=== PATIENT | female | born 1945 | race Caucasian/White ===

== ENCOUNTER → 2017-11-12 | Day surgery (SDC) | payer MEDICARE ==
[2017-11-11 10:30] LABS: BASOPHILS # (AUTO) 0.1 (0.0-0.1); BASOPHILS % 0.5 % (0.0-1.0); EOSINOPHILS # (AUTO) 0.3 (0.0-0.4); EOSINOPHILS % 2.7 % (0.0-6.0); HEMATOCRIT 38.9 % (34.2-44.1); HEMOGLOBIN 13.2 g/dL (12.0-16.0); LYMPHOCYTES # (AUTO) 1.5 (1.0-3.2); LYMPHOCYTES % 15.8 % (18.0-39.1); MEAN CORPUSCULAR HEMOGLOBIN 32.7 pg (28-32); MEAN CORPUSCULAR HGB CONC 33.9 g/dL (31-35); MEAN CORPUSCULAR VOLUME 96.3 fL (81-99); MONOCYTES % 10.6 % (4.4-11.3); NEUTROPHILS # (AUTO) 6.8 (2.1-6.9); NEUTROPHILS % 70.1 % (38.7-80.0); PLATELET COUNT 424 x10e3/uL (140-360); RED BLOOD COUNT 4.04 x10e6/uL (3.6-5.1); RED CELL DISTRIBUTION WIDTH 13.3 % (11.7-14.4)
[2017-11-11 10:51] LABS: ANION GAP 14.4 mmol/L (8-16); CALCIUM 10.7 mg/dL (8.4-10.2); CREATININE, SERUM 0.98 mg/dL (0.57-1.11); POTASSIUM 4.4 mmol/L (3.5-5.1)
--- NOTE | 2017-11-11 11:02 | Diagnostic Imaging Report ---
PROCEDURE: X-RAY CHEST, TWO VIEWS COMPARISON: None. INDICATIONS: PREOPERATIVE FOR ANKLE SURGERY FINDINGS: LUNGS: No consolidations or edema. Opacity in the lingula likely represents scarring. PLEURA: No effusions or pneumothorax. HEART \T\ MEDIASTINUM: The heart is within normal size-limits. BONES \T\ SOFT TISSUES: No acute findings. Degenerative changes of the spine. CONCLUSION: No acute thoracic abnormality. Usman Macdonald D.O. Dictated by: Usman Macdonald D.O. on 11/11/2017 at 11:03 Electronically approved by: Usman Macdonald D.O. on 11/11/2017 at 11:03
[~2017-11-12] MED LIST: ACETAMINOPHEN 1000 MG/100 ML IV ONE; CEFAZOLIN SOD 2 GM/D5W 50ML 50 ML IV ONE; CYMBALTA30 MG PO; DEXAMETHASONE SOD PHOS INJ 4 MG/ML VIAL ONE; FENTANYL CITRATE/PF 100MCG/2 ML INJ ONE; HYDROCHLOROTHIA25 MG PO; KETOROLAC TROMETHAMINE 30 MG/ML VIAL ONE; LIDOCAINE HCL 2% LOCAL INJ 5 ML SDV VIAL INJ ONE; METOPROLOL TART25 MG PO; MIDAZOLAM HCL 2 MG/2 ML VIAL ONE; ONDANSETRON HCL INJ 2 MG/ML VIAL ONE; PROPOFOL IV EMULSION 10 MG/ML 20 ML VIAL ONE; TRIAMTERENE PO; [UNRECOGNIZED DRUG - OTHER] PO
--- OUTSIDE RECORDS SUMMARY | 2017-11-12 11:56 | XMS REPORT ---
[facility] Address Unknown Phone Unavailable Care Team Providers Care Pearl Glue Operator Name Role Phone SOPHY WOLFE Unavailable Unavailable Problems This patient has no known problems. Allergies, Adverse Reactions, Alerts This patient has no known allergies or adverse reactions. Medications This patient has no known medications. Results Test Description Test Time Test Comments Text Results Atomic Results Result Comments CHEST 2 VIEWS [place] [address] Patient Name: MATI NAGY MR #: [id number] : 1945 Age/Sex: 72/F Req # : [id number] Adm Physician: Ordered by: CHRIS LEAVITT MD Report #: [id number] Location: OR Room/Bed: Procedure: [id number] DX/CHEST 2 VIEWS Exam Date: 11/11/17 Exam Time: 1030 REPORT STATUS: Signed PROCEDURE: X-RAY CHEST, TWO VIEWS COMPARISON: None. INDICATIONS: PREOPERATIVE FOR ANKLE SURGERY FINDINGS: LUNGS: No consolidations or edema. Opacity in the lingula likely represents scarring. PLEURA: No effusions or pneumothorax. HEART T MEDIASTINUM: The heart is within normal size-limits. BONES T SOFT TISSUES: No acute findings. Degenerative changes of the spine. CONCLUSION: No acute thoracic abnormality. Jailene Macdonald D.O. Dictated by: Jailene Macdonald D.O. on 11/11/2017 at 11:03 Electronically approved by: Jailene Macdonald D.O. on 11/11/2017 at 11:03 Dictated By: JAILENE MACDONALD DO 1103 Transcribed By: JOSSE on 11/11/17 1103 COPY TO: CHRIS LEAVITT MD
--- NOTE | 2017-11-12 23:49 | Operative Report ---
DATE OF PROCEDURE: November 12, 2017 PREOPERATIVE DIAGNOSIS: Left bimalleolar equivalent ankle fracture. POSTOPERATIVE DIAGNOSIS: Left bimalleolar equivalent ankle fracture. OPERATIONS/PROCEDURES PERFORMED: Patient underwent a: 1. Closed reduction of left ankle mortise. 2. Open reduction and internal fixation of left fibular fracture. SERVICE GREETER: None. ANESTHESIA: General endotracheal intubation anesthesia. IV FLUIDS: Per the anesthesia record. BRIEF DESCRIPTION OF PATIENT'S OPERATIVE PROCEDURE: Mr. Black was taken to the operating room and placed in the supine position on operating room table. Following induction of general anesthesia as well as endotracheal intubation, the patient's left lower extremity was examined under anesthesia. She was found to have bruise and ecchymosis about the left ankle joint. Fluoroscopic evaluation of the ankle joint demonstrated a displaced left fibular fracture with widening of the ankle mortise. The patient's lower extremity was prepped and draped in standard surgical fashion. Case was begun by performing a closed reduction of the patient's left ankle mortise. This was visualized using fluoroscopy. An incision was then created over the patient's fibula. This incision was carried through skin only. Blunt dissection was used to deepen the incision to the level of the lateral aspect of the fibula. Care was taken to protect the superficial peroneal nerve throughout the remainder of the case. The patient's fibular fracture was identified and cleaned. The wound was copiously irrigated. The lateral malleolus was reduced and a single screw was placed from anterior to posterior providing compression across patient's fracture site. A plate was then contoured to the lateral aspect of the fibula. This plate was then affixed to the fibula with combinations of cortical and locking screws. Fluoroscopic evaluation of the ankle joint demonstrated stabilization and realignment of the patient's fibula fracture as well as reduction of the patient's ankle mortise. The wound was then copiously irrigated. The wound was closed in a multilayer fashion. Sterile dressings were applied, and the patient was then awakened and taken to postanesthesia care unit in stable condition. Job#: [id number]
== END | disposition home or self-care (01) ==
LOC: OR 11:53
PROVIDERS: ATTEND Specialist
DX: S82.842A Displaced bimalleolar fracture of left lower leg, initial encounter for closed fracture (principal); S93.422A Sprain of deltoid ligament of left ankle, initial encounter; I10 Essential (primary) hypertension; M19.90 Unspecified osteoarthritis, unspecified site; W01.198A Fall on same level from slipping, tripping and stumbling with subsequent striking against other object, initial encounter; Y92.000 Kitchen of unspecified non-institutional (private) residence as the place of occurrence of the external cause; Z88.2 Allergy status to sulfonamides; Z01.810 Encounter for preprocedural cardiovascular examination; Z01.812 Encounter for preprocedural laboratory examination; Z01.818 Encounter for other preprocedural examination
CPT/HCPCS: 27792; 36415; 71046; 76000; 80048; 85025; 93005; C1713 ×6; J1100; J1885; J2001; J2250; J2405